=== PATIENT | female | born 1995 | race Caucasian/White ===

== ENCOUNTER 2018-12-16 20:02 | Emergency (ER) | payer OTHER ==
[~2018-12-16] VITALS: Ht 160 cm; Wt 53.5 kg
[2018-12-16] MEDS ORDERED: Cephalexin 500mg cap ORAL ONE (20:30)
[2018-12-16 20:37] VITALS: BP 124/81
--- NOTE | 2018-12-16 20:38 | NUR ---
ED Nurse Note: pt walked in c/o left 3rd finger possible abscess, pt reports she just woke up with it on her hand. noted small indurated skin abscess on left 3rd finger posterior. will cont monitor. no active drainage noted at this time.
[2018-12-16] MEDS ORDERED: CEPHALEXIN500 MG ORAL (20:53)
--- NOTE | 2018-12-16 21:28 | NUR ---
ED Nurse Note: pt cleared to be d/c per ERMD, pt discharge and aftercare instruction provided w/ prescription, pt education done via discussion and handout, pt advised to follow up with pcp or return to ed if changes in condition, pt verbalized understanding and agrees with plan, vss, ambulatory w/ steady gait, left w/ all belongings. ID band removed. pt delinces finding snf at this time, pt state she has place to go, pt req food, sandwich and juice given. pt has weather appropriate clothing. pt declined to do minicog but signed dc paperwork.
[2018-12-16 21:30] VITALS: BP 118/67
--- NOTE | 2018-12-17 09:10 | Emergency Room Report ---
History of Present Illness General Chief Complaint: Skin Rash/Abscess Source: Patient Present Illness HPI Patient presents with reports that she feels her left middle finger could be broken Patient does not recall any obvious trauma reports that she is homeless and she could have hit it on something without knowing There is some increased swelling at the distal aspect of the finger dorsally denies any fevers or chills Denies any chest pain or shortness of breath Allergies: Coded Allergies: No Known Allergies (Unverified , 12/16/18) Patient History Past Medical History: see triage record Pertinent Family History: none Last Menstrual Period: 12/11/18 Now: No Reviewed Nursing Documentation: PMH: Agreed; PSxH: Agreed Nursing Documentation-PMH Past Medical History: No History, Except For Review of Systems All Other Systems: negative except mentioned in HPI Physical Exam Vital Signs Date Time Temp Pulse Resp B/P (MAP) Pulse Ox O2 Delivery O2 Flow Rate FiO2 12/16/18 20:05 98.1 75 14 100 Room Air 12/16/18 20:37 124/81 Sp02 EP Interpretation: reviewed, normal General Appearance: no apparent distress Head: normocephalic, atraumatic Eyes: bilateral eye PERRL, bilateral eye EOMI ENT: normal pharynx Neck: supple, no meningismus Respiratory: lungs clear, no retraction, no accessory muscle use Cardiovascular #1: regular rate, rhythm Gastrointestinal: soft Musculoskeletal: other - There is no area dorsally just proximal to the nailbed on the left middle finger small pustule, patient is able to flex and extend the finger otherwise appropriately, Neurologic: alert, oriented x3 Skin: other - As above Lymphatic: no adenopathy Medical Decision Making Diagnostic Impression: Primary Impression: cellulitis ER Course Patient is a small pustule just at the distal aspect of the left finger, x-ray imaging does not show any acute fracture, patient will have initial conservative intervention with antibiotics and warm soaking and will return with any changes or concerns Other X-Ray Diagnostic Results Other X-Ray Diagnostic Results : X-Ray ordered: left hand # of Views/Limited Vs Complete: 3 View Indication: Pain EP Interpretation: Yes Interpretation: no dislocation, no fractures, other - Soft tissue changes distally middle Impression: Other - As above Electronically Signed by: Sheree Polo DO Last Vital Signs Date Time Temp Pulse Resp B/P (MAP) Pulse Ox O2 Delivery O2 Flow Rate FiO2 5/6/19 21:30 98.4 89 18 118/67 99 Room Air Status: improved Disposition: HOME, SELF-CARE Condition: Improved Scripts Cephalexin* (KEFLEX*) 500 Mg Capsule 500 MG ORAL EVERY 6 HOURS for 7 Days, CAP Prov: Sheree Polo DO 12/16/18 Referrals: Mili FUENTES,REFERRING (PCP) [facility] Patient Instructions: Cellulitis, [id number] Additional Instructions: Patient is provided with the discharge instructions notified to follow up with primary doctor in the next 2-3 days otherwise return to the er with any worsening symptoms. Please note that this report is being documented using [employer] technology. This can lead to erroneous entry secondary to incorrect interpretation by the dictating instrument. Sheree Polo DO December 17, 2018 09:10
--- NOTE | 2018-12-17 11:10 | Diagnostic Imaging Report ---
Indication: left hand pain. Comparison: None Findings: 3 views of the left hand were obtained. Normal alignment is demonstrated. No acute fractures, erosions, or periosteal reaction are seen. Soft tissues are unremarkable. Impression: No acute findings.
== END 2018-12-16 21:31 | disposition home or self-care (01) ==
LOC: EMR 20:41
DX: L03.012 Cellulitis of left finger (principal)
CPT/HCPCS: 99283